=== PATIENT | female | born 1980 | race Caucasian/White ===

== ENCOUNTER 2017-01-12 14:24 | Outpatient (CLI) | payer OTHER ==
[~2017-01-12] VITALS: Ht 154.9 cm; Wt 66.0 kg
[~2017-01-12 14:24] MED LIST: ACET500C5 PO; CEPH-443 PO; IBUP-1542 PO; NITR-58 PO; ZOF8 PO
[2017-01-12 14:47] VITALS: Ht 154.9 cm; Wt 66.0 kg
[2017-01-12 14:48] VITALS: BP 116/75; PULSE 87
[2017-01-12] MEDS ORDERED: PRENAT PO (15:02)
--- NOTE | 2017-01-12 16:08 | RADRPT ---
PROCEDURE: US OB. CLINICAL INDICATION: pain TECHNIQUE: Multiple sonographic images of the pelvis and gravid uterus were obtained. The images were reviewed on a PACS workstation. COMPARISON: No prior studies are available for comparison. FINDINGS: There is a single viable intrauterine gestation. Cardiac activity is present with 144 beats per min forrest. There is a vertex presentation. The placenta is anterior. There is no evidence for an abruption or placenta previa. Measurements were made in order to determine age. The results are as follows: BPD =9.5 cm HC =33.7 cm AC =34.3 cm FL =7.7 cm Estimated gestational age of approximately 38 weeks and 5 days based on ultrasound measurements. Clinical age: 39 weeks and 0 days. The estimated date of delivery is 01/21/17, based on ultrasound measurements. The EFW = 3533 g, 59%, based on LMP age. RPTAT: AA IMPRESSION: Single viable intrauterine gestation of approximately 38 weeks and 5 days based on ultrasound measu rements. .Zay Pineda MD, Date Time Electronically viewed and signed by .Zay Pineda MD, on 01/12/2017 16:08 .S/
--- NOTE | 2017-01-12 16:10 | RADRPT ---
PROCEDURE: US OB biophysical profile. CLINICAL INDICATION: decreased movements, pain TECHNIQUE: Multiple sonographic images of the pelvis were obtained. The images were reviewed on a PACS workstation. COMPARISON: No prior studies are available for comparison. FINDINGS: There is a single viable intrauterine gestation. Cardiac activity is present with 134 beats per min forrest. There is a vertex presentation. The placenta is anterior. There is no evidence of placental abruption. There is a normal amount of amniotic fluid with an CARLI = 10 cm. Biophysical profile: movement 2/2 tone 2/2. breathing 2/2 CARLI 2/2 Total 05/06 RPTAT: AA . IMPRESSION: Normal biophysical profile. . .Zay Pineda MD, MD Date Time Electronically viewed and signed by .Zay Pineda MD, MD on 01/12/2017 16:10 .S/
--- NOTE | 2017-01-12 17:52 | QN ---
Documentation Comment co of ucx vss exam wnl os closed cat I tracing a/p false laboe 38.5 dc home KESHAV PAL MD Jan 12, 2017 17:52
== END 2017-01-12 17:55 | disposition home or self-care (01) ==
LOC: OBT 14:24 → L-D 14:25 → OBT 17:55
PROVIDERS: ATTEND Obstetrics & Gynecology
DX: O47.1 False labor at or after 37 completed weeks of gestation (principal); O36.8130 Decreased fetal movements, third trimester, not applicable or unspecified; Z3A.38 38 weeks gestation of pregnancy
CPT/HCPCS: 76815; 76818; Z7500; G0463

== ENCOUNTER 2017-01-12 19:36 | Inpatient (IN) | payer OTHER ==
[~2017-01-12 19:36] MED LIST changes: +PRENAT PO
[2017-01-12] MEDS ORDERED: MISOPROSTOL 200 MCG TAB PR PRN ×2 (20:00→21:00)
[2017-01-12] MEDS ORDERED: BUTORPHANOL 2 MG INJ IV PRN ×2 (20:00)
[2017-01-12] MEDS ORDERED: IBUPROFEN 600 MG TAB PO PRN (20:00)
[2017-01-12] MEDS ORDERED: METHYLERGONOVINE 0.2 MG INJ IM PRN ×2 (20:00→21:00)
[2017-01-12] MEDS ORDERED: ACETAMINOPHEN/CODEINE #3 TAB PO PRN (20:00)
[2017-01-12] MEDS ORDERED: CARBOPROST 250 MCG INJ IM PRN ×2 (20:00→21:00)
[2017-01-12] MEDS ORDERED: LACTATED RINGER'S 1,000 ML IV PRN (20:00)
[2017-01-12] MEDS ORDERED: LIDOCAINE 1% (MPF) 30 ML INJ INJ PRN (20:00)
[2017-01-12] MEDS ORDERED: LACTATED RINGER'S 1,000 ML IV SCH (20:00)
[2017-01-12] MEDS ORDERED: OXYTOCIN 30 UNITS/LR 500 ML IV SCH ×2 (20:00)
[2017-01-12] MEDS ORDERED: OXYTOCIN 30 UNITS/LR 500 ML IV PRN ×2 (20:00→21:00)
--- NOTE | 2017-01-12 20:15 | TRIAGE ---
OB Triage Datetime Report Generated by CPN: 01/12/2017 20:14 Datetime: 01/12/2017 19:57 Stage of : Labor Membrane Status: Ruptured Membranes Ruptured Date/Time: 01/12/2017 19:57 Membranes Rupture Method: Spontaneous Amniotic Fluid Color: Light Meconium Amniotic Fluid Amount: Moderate Amniotic Fluid Odor: Normal Datetime: 01/12/2017 19:43 Vaginal Exam Dilatation (cms): 10.0 Effacement (%): 100 Exam By: M BLOCK Membrane Status: Bulging Vaginal Bleeding: None Cervix, Consistency: Soft Cervix, Position: Midposition Presentation 'A': Cephalic Datetime: 01/12/2017 19:36 Time of Arrival: 01/12/2017 19:35 Arrived By: Ambulatory Arrived From: Home Chief Complaint: UCS Movement: Present Contractions: Regular Datetime: 01/12/2017 17:30 Stage of : OB Triage Datetime: 01/12/2017 17:25 Labor Evaluation Frequency: 6-8 Monitor Mode: External Duration (sec)2399: 40-60 Quality: Mild Pattern: Normal: <= 5 Contractions in 10 Minutes Resting Tone Frazee: Relaxed Heart Rate FHR Baseline Rate: 135 Monitor Mode: External US Variability: Moderate 6-25 bpm Accelerations: 10X10 Decelerations: None Category: Category I Pain Assessment Pain Scale: 3 Pain Presence: Intermittent Pain Type: Cramping Pain Location: Abdomen Pain Goal: 3 Pain Relief Measures: Comfort Measures Datetime: 01/12/2017 16:48 Labor Evaluation Frequency: 5-7 Monitor Mode: External Duration (sec)2399: 40-60 Quality: Mild Pattern: Normal: <= 5 Contractions in 10 Minutes Resting Tone [place]: Relaxed Contraction Comments: STATES FEELS LESS THAN BEFORE Heart Rate FHR Baseline Rate: 135 Monitor Mode: External US Variability: Moderate 6-25 bpm Accelerations: 10X10 Decelerations: None Category: Category I Pain Assessment Pain Scale: 3 Pain Presence: Intermittent Pain Type: Cramping Pain Location: Abdomen Pain Goal: 3 Pain Relief Measures: Comfort Measures Datetime: 01/12/2017 15:40 Labor Evaluation Frequency: 5-6 Monitor Mode: External Duration (sec)2399: 50-60 Quality: Mild Pattern: Normal: <= 5 Contractions in 10 Minutes Resting Tone Frazee: Relaxed Heart Rate FHR Baseline Rate: 135 Monitor Mode: External US Variability: Moderate 6-25 bpm Accelerations: 10X10 Decelerations: None Category: Category I Pain Assessment Pain Scale: 4 Pain Presence: Intermittent Pain Type: Cramping Pain Goal: 3 Pain Relief Measures: Comfort Measures Datetime: 01/12/2017 15:20 Labor Evaluation Frequency: 5-6 Monitor Mode: External Duration (sec)2399: 50-60 Quality: Mild Resting Tone Frazee: Relaxed Heart Rate FHR Baseline Rate: 135 Monitor Mode: External US Variability: Moderate 6-25 bpm Decelerations: None Category: Category II Pain Assessment Pain Scale: 4 Pain Presence: Intermittent Pain Type: Cramping Pain Goal: 3 Pain Relief Measures: Comfort Measures Datetime: 01/12/2017 14:39 Stage of : OB Triage Assessment Type: Triage Maternal Assessment Level of Consciousness: Fully Conscious DTR's/Clonus: DTRs 2+; No Clonus Headache: Denies Blurred Vision: No Respiratory Effort: Unlabored; Regular Rhythm; Equal Expansion Breath Sounds, Left: Clear and Equal Breath Sounds, Right: Clear and Equal Nausea/Vomiting: Denies RUQ Epigastric Pain: Denies Facial Edema: None Temperature Route: Axillary Fall Risk Assessment History of Falling: (0) No Secondary Diagnosis: (0) No Ambulatory Aid: (0) Bedrest/Nurse Assist IV Therapy: (0) No Gait: (0) Normal/Bedrest/Immobile Mental Status: (0) Oriented to Own Ability Labor Evaluation Frequency: APPLIED Monitor Mode: External Resting Tone Frazee: Relaxed Heart Rate FHR Baseline Rate: 135 Monitor Mode: External US Variability: Moderate 6-25 bpm Decelerations: None Category: Category II Pain Assessment Pain Scale: 4 Pain Presence: Intermittent Pain Type: Cramping; Contraction Pain Location: Perineum Pain Goal: 3 Pain Relief Measures: Comfort Measures Vaginal Exam Dilatation (cms): 0.0 Station: -2 Exam By: Sherri WHITE Membrane Status: Intact Presentation 'A': Cephalic Datetime: 01/12/2017 14:37 Time of Arrival: 01/12/2017 14:24 Arrived By: Ambulatory Arrived From: Home Chief Complaint: C/O UCS THAT STARTED YESTERDAY, APPROX 10 MIN APART. SCANT BLEEDING, DENIES LEAK ING OF FLUID Movement: Decreased Contractions: Regular Contractions: Q 10 Rupture of Membranes: Denies Vaginal Bleeding: None Vaginal Discharge: Denies Recent Sexual Intercouse: Denies Abdominal Trauma: Not Applicable Time Provider Notified: 01/12/2017 14:30 Provider Notified: OZZY Initial Plan: MONITOR, VE, BPP
--- NOTE | 2017-01-12 20:39 | LDN ---
Date/Time of Note Date/Time of Note DATE: 01/12/17 TIME: 20:35 Delivery Summary of a viable baby boy weighing 3345 grams, or 7# 6oz, 19" long and with Apgars of 9/9. Weeks of Gestation 38w 5d Placenta Delivered: Spontaneously Meconium: Light Episiotomy: No Perineal laceration: 2 Laceration repair: Second degree perineal laceration repaired with 2-0 chromic. Anesthesia type: Local Estimated blood loss: 200 Sponge & Needle done & correct: Yes All needle counts correct: Yes Any foreign bodies felt in the: No (vagina) Problems: Infant Delivery Information Sex Sex: male Apgars 1 Minute: 9 5 Minute: 9 Suctioning Nose & mouth suctioned at ximena: No Delee suction performed: No Umbilical Cord Umbilical cord with: 3 Vessels Cord presentations: no nuchal cord Cord Blood was obtained: Yes Mother & Baby Disposition Disposition Mom & Baby to Maternity; Good: Yes Baby to NICU: No AVIS FRIEND MD Jan 12, 2017 20:39
[2017-01-12 20:43] LABS: ADD SCAN DIFF NO
--- NOTE | 2017-01-12 20:43 | HP ---
Date/Time of Note Date/Time of Note DATE: 01/12/17 TIME: 20:39 OB - History Hx of Present Free Text/Dictation 36 y.o. started julio césar last night, came in today at 1430 and was sent home after 3 hours due to no cervical change, but while ot was waiting for her ride home she started to have much stronger pain and came back up and was completely dilated and intact. Estimated Due Date: Jan 21, 2017 : 3 Para: 2 Care: Good Care Ultrasounds: Normal mid trimester US Obstetrical Complications: None Medical Complications: None Past Family/Social History * Past Medical, Surgical, Family and Obstetric Histories reviewed with pt as prenatals not available. Blood Type: Unknown Rubella: unknown RPR/VDRL: Unknown GBS Status: Unknown HBsAG: Unknown OB Admission Exam Physical Exam HEENT: WNL Heart: Rhythm Normal Lungs: Clear Abdomen: WNL Extremities: Normal Reflexes: Normal Cervical Dilatation: 10cm Effacement: 100% Station: +2 Membranes: Intact Amniotic Fluid: Thin Meconium Decelerations: Variable Decelerations Contractions on Admission: < 5 Minutes Apart OB Assessment/Plan Reason for admission: active labor Plan: Expectant Management AVIS FRIEND MD Jan 12, 2017 20:43
[2017-01-12 20:45] LABS: BASOPHILS % 0.2 % (0.0-2.0); EOSINOPHILS # 0.1 10^3/ul (0.0-0.5); EOSINOPHILS % 0.6 % (0.0-7.0); HEMATOCRIT 40.4 % (37.0-47.0); HEMOGLOBIN 13.3 g/dl (12.0-16.0); LYMPHOCYTES # 1.6 10^3/ul (0.8-2.9); LYMPHOCYTES % 13.6 % (15.0-51.0); MEAN CORPUSCULAR HEMOGLOBIN 30.7 pg (29.0-33.0); MEAN CORPUSCULAR HGB CONC 32.9 g/dl (32.0-37.0); MEAN CORPUSCULAR VOLUME 93.3 fl (82.0-101.0); MEAN PLATELET VOLUME 10.2 fl (7.4-10.4); MONOCYTE # 0.6 10^3/ul (0.3-0.9); MONOCYTES % 5.4 % (0.0-11.0); NEUTROPHIL # 9.2 10^3/ul (1.6-7.5); NEUTROPHILS % 79.7 % (39.0-77.0); PLATELET COUNT 212 10^3/UL (140-415); RED BLOOD COUNT 4.33 10^6/ul (4.20-5.40); RED CELL DISTRIBUTION WIDTH 13.3 % (11.5-14.5); WHITE BLOOD COUNT 11.5 10^3/ul (4.8-10.8)
[2017-01-12 20:59] LABS: INR 1.19; PROTIME 15.2 Sec (12.2-14.2); PT RATIO 1.2
[2017-01-12 21:00] LABS: PARTIAL THROMBOPLASTIN TIME 27.1 Sec (25.0-35.0)
[2017-01-12] MEDS ORDERED: LANOLIN 7 GM TUBE TOP PRN (21:00)
[2017-01-12] MEDS ORDERED: WITCH HAZEL/GLYCERIN PAD PR PRN (21:00)
[2017-01-12] MEDS ORDERED: BENZOCAINE 20% 56 ML SPRAY TOP PRN (21:00)
[2017-01-12] MEDS ORDERED: OXYCODONE/ASPIRIN (4.88/325) TAB PO PRN (21:00)
[2017-01-12 22:05] VITALS: BP 115/59; PULSE 72; RESP 16
[2017-01-12 22:35] VITALS: BP 114/63; PULSE 63; RESP 15
[2017-01-13] MEDS: IBUPROFEN 600 MG TAB PO SCH ×4 (00:12→17:57)
[2017-01-13] MEDS: LACTATED RINGER'S 1,000 ML IV* SCH ×2 (00:34→00:50)
[2017-01-13 04:09] VITALS: BP 114/58; PULSE 65; RESP 19
[2017-01-13 07:38] LABS: ADD SCAN DIFF NO
[2017-01-13 07:44] LABS: BASOPHILS % 0.2 % (0.0-2.0); EOSINOPHILS # 0.1 10^3/ul (0.0-0.5); EOSINOPHILS % 0.9 % (0.0-7.0); HEMATOCRIT 37.7 % (37.0-47.0); HEMOGLOBIN 12.5 g/dl (12.0-16.0); LYMPHOCYTES # 2.3 10^3/ul (0.8-2.9); LYMPHOCYTES % 14.3 % (15.0-51.0); MEAN CORPUSCULAR HEMOGLOBIN 30.6 pg (29.0-33.0); MEAN CORPUSCULAR HGB CONC 33.2 g/dl (32.0-37.0); MEAN CORPUSCULAR VOLUME 92.2 fl (82.0-101.0); MEAN PLATELET VOLUME 10.4 fl (7.4-10.4); MONOCYTE # 1.3 10^3/ul (0.3-0.9); MONOCYTES % 7.8 % (0.0-11.0); NEUTROPHIL # 12.2 10^3/ul (1.6-7.5); NEUTROPHILS % 75.9 % (39.0-77.0); PLATELET COUNT 213 10^3/UL (140-415); RED BLOOD COUNT 4.09 10^6/ul (4.20-5.40); RED CELL DISTRIBUTION WIDTH 13.2 % (11.5-14.5); WHITE BLOOD COUNT 16.1 10^3/ul (4.8-10.8)
[2017-01-13 08:30] VITALS: BP 118/67; PULSE 89; RESP 16
--- NOTE | 2017-01-13 09:21 | PN ---
Date/Time of Note Date/Time of Note DATE: 01/13/17 TIME: 09:20 OB Subjective Subjective Subjective day 1 Afebrile vital signs stable abdomen soft uterus firm lochia moderate extremity normal ambulation recommended Laboratory Tests Test 01/12/17 20:35 01/13/17 07:00 White Blood Count 11.510^3/ul 16.110^3/ul Red Blood Count 4.3310^6/ul 4.0910^6/ul Hemoglobin 13.3g/dl 12.5g/dl Hematocrit 40.4% 37.7% Mean Corpuscular Volume 93.3fl 92.2fl Mean Corpuscular Hemoglobin 30.7pg 30.6pg Mean Corpuscular Hemoglobin Concent 32.9g/dl 33.2g/dl Red Cell Distribution Width 13.3% 13.2% Platelet Count 63293^3/UL 48837^3/UL Mean Platelet Volume 10.2fl 10.4fl Neutrophils % 79.7% 75.9% Lymphocytes % 13.6% 14.3% Monocytes % 5.4% 7.8% Eosinophils % 0.6% 0.9% Basophils % 0.2% 0.2% Nucleated Red Blood Cells % 0.0/100WBC 0.0/100WBC Neutrophils # 9.210^3/ul 12.210^3/ul Lymphocytes # 1.610^3/ul 2.310^3/ul Monocytes # 0.610^3/ul 1.310^3/ul Eosinophils # 0.110^3/ul 0.110^3/ul Basophils # 0.010^3/ul 0.010^3/ul Nucleated Red Blood Cells # 0.010^3/ul 0.010^3/ul Prothrombin Time 15.2Sec Prothrombin Time Ratio 1.2 INR International Normalized Ratio 1.19 Activated Partial Thromboplast Time 27.1Sec Current Medications Medications (Trade) Dose Ordered Sig/Lindy Route PRN Reason Start Time Stop Time Status Last Admin Dose Admin Lactated Ringer's (Lr) 1,000 ml @ 125 mls/hr Q8H IV 01/12/17 20:00 01/12/17 20:34 DC Butorphanol Tartrate (Stadol) 1 mg Q2H PRN IV PAIN 01/12/17 20:00 01/12/17 20:34 DC Butorphanol Tartrate (Stadol) 2 mg Q2H PRN IV PAIN 01/12/17 20:00 01/12/17 20:34 DC Lidocaine 30 ml 30 ml ONCE PRN INJ EPISIOTOMY/TEARING 01/12/17 20:00 01/12/17 20:34 DC Oxytocin/Lactated Ringer's 500 ml @ 125 mls/hr ONCE -MAY REPEAT X1 IV 01/12/17 20:00 01/12/17 20:34 DC 01/12/17 20:31 Oxytocin/Lactated Ringer's 500 ml @ 125 mls/hr ONCE IV 01/12/17 20:00 01/12/17 20:34 DC 01/12/17 20:31 Ibuprofen (Motrin) 600 mg ONCE PRN PO Mild Pain (Pain Score 1-3) 01/12/17 20:00 01/12/17 20:34 DC Acetaminophen/ Codeine Phosphate 2 tab 2 tab ONCE PRN PO Moderate to Severe Pain (4-10) 01/12/17 20:00 01/12/17 20:34 DC Lactated Ringer's 1,000 ml @ 2,000 mls/hr Q30M PRN IV PRE-EPIDURAL BOLUS 01/12/17 20:00 01/12/17 20:34 DC Oxytocin/Lactated Ringer's 500 ml @ 0 mls/hr ONCE PRN IV For Hemorrhage Management 01/12/17 20:00 01/12/17 20:34 DC Methylergonovine Maleate (Methergine) 0.2 mg ONCE PRN IM VAGINAL BLEEDING 01/12/17 20:00 01/12/17 20:34 DC Carboprost Tromethamine (Hemabate) 250 mcg ONCE PRN IM VAGINAL BLEEDING 01/12/17 20:00 01/12/17 20:34 DC Misoprostol 1000 mcg 1,000 mcg ONCE PRN CO VAGINAL BLEEDING 01/12/17 20:00 01/12/17 20:34 DC Lactated Ringer's (Lr) 1,000 ml @ 125 mls/hr Q8H IV* 01/12/17 20:31 01/13/17 00:50 Ibuprofen (Motrin) 600 mg Q6 PO 01/13/17 00:00 01/13/17 05:52 Oxycodone/Aspirin (Percodan) 1 tab Q3H PRN PO PAIN LEVEL 1-5 01/12/17 21:00 01/12/17 22:25 Witch Sara/ Glycerin (Tucks Pads) 1 pad BEDSIDE MEDICATION PRN CO HEMORRHOID/EPISIOTMY PAIN 01/12/17 21:00 01/12/17 22:51 Benzocaine (Dermoplast [place]) 1 spray BEDSIDE MEDICATION PRN TOP HEMORRHOID/EPISIOTMY PAIN 01/12/17 21:00 01/12/17 22:52 Lanolin (Www-L-[id number]) 1 applic BEDSIDE MEDICATION PRN TOP BEDSIDE FOR CLAUDIO TO NIPPLES 01/12/17 21:00 01/12/17 23:02 Diphtheria/ Tetanus/Acell Pertussis 0.5 ml 0.5 ml ONCE ONCE IM* 01/14/17 09:00 01/14/17 09:01 Oxytocin/Lactated Ringer's 500 ml @ 0 mls/hr ONCE PRN IV For Hemorrhage Management 01/12/17 21:00 Methylergonovine Maleate (Methergine) 0.2 mg ONCE PRN IM VAGINAL BLEEDING 01/12/17 21:00 Carboprost Tromethamine (Hemabate) 250 mcg ONCE PRN IM VAGINAL BLEEDING 01/12/17 21:00 Misoprostol (Cytotec) 1,000 mcg ONCE PRN CO VAGINAL BLEEDING 01/12/17 21:00 JOSE PRECIADO MD Jan 13, 2017 09:21
[2017-01-13 16:05] VITALS: BP 113/51; PULSE 77; RESP 16
[2017-01-13 20:00] VITALS: BP 108/60; PULSE 82; RESP 18
[2017-01-14 04:30] VITALS: BP 111/58; PULSE 74; RESP 18
[2017-01-14] MEDS: IBUPROFEN 600 MG TAB PO SCH ×3 (06:06→11:32)
[2017-01-14 07:30] VITALS: BP 103/70; PULSE 68; RESP 19
[2017-01-14] MEDS ORDERED: DIPHTH/TET/ACEL PERTUSS (ADULT) 0.5 ML VIAL IM* ONE (09:00)
--- NOTE | 2017-01-14 14:15 | DS ---
Date/Time of Note Date/Time of Note DATE: 01/14/17 TIME: 14:14 Discharge Summary Admission/Discharge Info Admit Date/Time Jan 12, 2017 at 19:50 Discharge Date/Time January 14, 2017 Final Diagnosis Normal vaginal delivery Patient Condition: Good Procedures Normal spontaneous vaginal delivery Hx of Present Illness Term in labor Hospital Course Satisfactory Home Meds Reported Medications Multivit/Min/Fol Ac/Iron/Pren* ( S*) 1 Tab Tab, 1 TAB PO DAILY, TAB 01/12/17 Discontinued Scripts Ondansetron Hcl* (Zofran* ODT) 8 mg -ODT Tab.disper, 8 MG PO Q6 Y for NAUSEA AND /OR VOMITING, #8 TAB Prov:PETE HERNANDEZ MD 05/28/15 Acetaminophen* (Tylophen*) 500 Mg Capsule, 500 MG PO Q6H Y for PAIN, #20 TAB Prov:PETE HERNANDEZ MD 05/28/15 Nitrofurantoin Monohyd Macrocr (Macrobid) 100 Mg Capsr, 100 MG PO BID for 7 Days , CAP Prov:PETE HERNANDEZ MD 05/28/15 Ibuprofen* (Motrin*) 600 Mg Tab, 600 MG PO Q6, #14 TAB Prov:PETE HERNANDEZ MD 04/13/15 Cephalexin* (Keflex*) 500 Mg Capsule, 500 MG PO QID for 7 Days, CAP Prov:PETE HERNANDEZ MD 04/13/15 Follow-up Plan Appointment clinic in 2 weeks for follow-up JOSE PRECIADO MD Jan 14, 2017 14:15
== END 2017-01-14 17:54 | disposition home or self-care (01) | DRG 775 ==
LOC: OBT 19:36 → L-D 19:40 → OBT 19:50 → PP1 22:00
PROVIDERS: ADMIT Obstetrics & Gynecology; ATTEND Obstetrics & Gynecology
PROC: 10E0XZZ Delivery of Products of Conception, External Approach (ICD-10-PCS; principal; 2017-01-12)
PROC: 0KQM0ZZ Repair Perineum Muscle, Open Approach (ICD-10-PCS; 2017-01-12)
PROC: 3E00X4Z Introduction of Serum, Toxoid and Vaccine into Skin and Mucous Membranes, External Approach (ICD-10-PCS; 2017-01-14)
DX: O70.1 Second degree perineal laceration during delivery (principal); Z37.0 Single live birth; Z23 Encounter for immunization; Z3A.38 38 weeks gestation of pregnancy
CPT/HCPCS: 85025; 85610; 85730; 86592; 86900; 86901; 90715; J2590; J7120